=== PATIENT | male | born 1950 | race Caucasian/White ===

== ENCOUNTER 2017-09-22 21:17 | Emergency (ER) | payer MEDICARE ==
[2017-09-22] MEDS ORDERED: IBUPROFEN 400 MG TABLET PO ONE (21:32)
[2017-09-22] MEDS ORDERED: ACETAMINOPHEN 500 MG TABLET PO ONE (21:32)
--- NOTE | 2017-09-22 21:36 | Emergency Department Record ---
History of Present Illness - General Chief complaint: Flu Like Symptoms Stated complaint: COUGH,SORE CHEST,SINUS DRAINAGE,CONFUSION Time Seen by Provider: 09/22/17 21:32 Source: Patient Mode of Arrival: Ambulatory Limitations: No limitations - History of Present Illness Initial comments: 66 yo male presents to ED for evaluation of fever, cough, and congestion symptoms for the past 2-3 days. Patient reports body aches and chills as well. Patient denies any recent ill contacts, denies nausea, vomiting, or abdominal pain/urinary symptoms. Patient does report a history of CAD s/p stent placement and HTN. MD Complaint: Generalized weakness Onset/Timin -: Days(s) Location: Generalized Severity: Moderate Consistency: Constant Improves with: None Worsens with: None Associated Symptoms: Other - [place] Coma Scale Eye Response: (4) Open spontaneously Motor Response: (6) Obeys commands Verbal Response: (5) Oriented [place] Total: 15 - Related Data Home Medications Medication Instructions Recorded Confirmed Last Taken Aspirin 81 mg PO DAILY 09/22/17 09/22/17 Unknown L.acidoph,Paracasei, B.lactis 1 each PO DAILY 09/22/17 09/22/17 Unknown [Probiotic] Turmeric Root Extract [Turmeric] 500 mg PO DAILY 09/22/17 09/22/17 Unknown Previous Rx's Medication Instructions Recorded Doxycycline Hyclate [Doxycycline] 100 mg PO BID #18 cap 09/22/17 Allergies Allergy/AdvReac Type Severity Reaction Status Date / Time venom-honey bee Allergy Intermediate HIVES Verified 09/22/17 21:28 adhesive AdvReac Mild RASH Verified 09/22/17 21:28 isosorbide AdvReac Mild HEADACHE Verified 09/22/17 21:28 Travel Screening - Travel/Exposure Within Last 30 Days Have you traveled within the last 30 days?: No - Travel/Exposure Within Last Year Have you traveled outside the [place] in the last year?: No - Additonal Travel Details Have you been exposed to anyone with a communicable illness?: No - Travel Symptoms Symptom Screening: None Review of Systems Constitutional: Reports: Chills, Fever, Malaise, Weakness. Denies: Night sweats Eyes: Denies: Eye discharge, Eye pain ENT: Reports: Congestion. Denies: Ear pain Respiratory: Reports: Cough. Denies: Dyspnea Cardiovascular: Denies: Chest pain, Dyspnea on exertion, Edema Endocrine: Reports: Fatigue. Denies: Heat or cold intolerance Gastrointestinal: Denies: Abdominal pain, Nausea, Vomiting Genitourinary: Denies: Incontinence, Retention Musculoskeletal: Denies: Arthralgia, Back pain, Gout, Joint swelling Skin: Denies: Bruising, Change in color Neurological: Reports: Headache. Denies: Abnormal gait, Confusion, Seizure Psychiatric: Denies: Anxiety Hematological/Lymphatic: Denies: Anemia, Blood Clots Past Medical History - SOCIAL HISTORY Smoking Status: Never smoker Alcohol Use: None Drug Use: None - RESPIRATORY Hx Respiratory Disorders: Yes Hx Bronchitis: Yes (hx of) Hx Sleep Apnea: Yes (hx of before weight loss) Hx of CPAP: Yes - CARDIOVASCULAR Hx Cardio Disorders: Yes Hx Cardiac Cath: Yes Hx Edema: Yes Hx Coronary Stent: Yes (2003 & 2004) - NEURO Hx Neuro Disorders: No - GI Hx GI Disorders: Yes Hx Reflux: Yes - Hx Genitourinary Disorders: Yes Hx Prostate Problems: Yes (BPH) - ENDOCRINE Hx Endocrine Disorders: No - MUSCULOSKELETAL Hx Musculoskeletal Disorders: No Comment:: knee pain - PSYCH Hx Psych Problems: Yes Hx Anxiety: Yes Comment:: ?bipolar-seeing psychiatrist - HEMATOLOGY/ONCOLOGY Hx Hematology/Oncology Disorders: No Family Medical History Any Significant Family History?: No Hx Cancer: Brother/Sister *Cancer Comment: pancreatic, liver Hx Diabetes: Mother Hx Heart Disease: Father, Mother *Heart Comment: CHF, SD Hx HTN: Mother Physical Exam - General General Appearance: Alert, Oriented x3, Cooperative, Mild distress Limitations: No limitations - Head Head exam: Atraumatic, Normocephalic, Normal inspection Head exam detail: negative: Abrasion, Contusion, Berrios's sign, General tenderness, Hematoma, Laceration - Eye Eye exam: Normal appearance. negative: Conjunctival injection, Periorbital swelling, Periorbital tenderness, Scleral icterus - ENT Ear exam: negative: Auricular hematoma, Auricular trauma Nasal Exam: negative: Active bleeding, Discharge, Dried blood, Foreign body Mouth exam: negative: Drooling, Laceration, Muffled voice, Tongue elevation - Neck Neck exam: Normal inspection. negative: Meningismus, Tenderness - Respiratory Respiratory exam: Normal lung sounds bilaterally. negative: Rales, Respiratory distress, Rhonchi, Stridor - Cardiovascular Cardiovascular Exam: Normal rhythm, Normal heart sounds, Tachycardia - GI/Abdominal GI/Abdominal exam: Soft. negative: Rebound, Rigid, Tenderness - Rectal Rectal exam: Deferred - exam: Deferred - Extremities Extremities exam: Normal inspection. negative: Pedal edema, Tenderness - Back Back exam: Denies: CVA tenderness (R), CVA tenderness (L) - Neurological Neurological exam: Alert, Normal gait, Oriented X3 - Psychiatric Psychiatric exam: Normal affect, Normal mood - Skin Skin exam: Normal color. negative: Abrasion Type of lesion: negative: abrasion Course Vital Signs 09/22/17 21:20 Temperature 102.6 F H Pulse Rate 113 H Respiratory 20 Rate Blood Pressure 137/82 Pulse Ox 95 - Reevaluation(s) Reevaluation #1: 09/22/17 22:15 Influenza: Negative CXR: No acute process Patient reassessed and updated on all results, will initiate treatment with Doxycycline for probable CAP. Patient agrees with the plan of care as discussed. Disposition Disposition: Discharge Clinical Impression: Fever Qualifiers: Fever type: unspecified Qualified Code(s): R50.9 - Fever, unspecified URI (upper respiratory infection) Qualifiers: URI type: unspecified URI Qualified Code(s): J06.9 - Acute upper respiratory infection, unspecified Disposition: Home, Self-Care Condition: (2) Stable Instructions: Upper Respiratory Infection (ED) Additional Instructions: Return to ED if your symptoms worsen or if you have any concerns. Doxycyline as directed. Follow-up with your family doctor in 3-5 days as directed. Prescriptions: Doxycycline Hyclate [Doxycycline] 100 mg PO BID #18 cap Forms: Patient Portal Access Time of Disposition: 22:17 Quality - Quality Measures Quality Measures: N/A - Blood Pressure Screening Does Patient Have Any of the Following: No Blood Pressure Classification: Pre-Hypertensive BP Reading Systolic Measurement: 137 Diastolic Measurement: 82 Screening for High Blood Pressure: < Pre-Hypertensive BP, F/U Documented > [ [id number]] Pre-Hypertensive Follow-up Interventions: Referral to alternative/primary care provider.
[2017-09-22 22:00] LABS: INFLUENZA A NEGATIVE (NEGATIVE); INFLUENZA B NEGATIVE (NEGATIVE)
[2017-09-22] MEDS ORDERED: DOXYCYCLINE HYCLATE 100 MG CAPSULE PO ONE (22:17)
--- NOTE | 2017-09-23 19:44 | RADIOLOGY REPORT ---
EXAM: CHEST 2 VIEWS HISTORY: FLU-LIKE SYMPTOMS SINCE THURSDAY. COUGH, SORE THROAT, AND SINUS DRAINAGE. FEVER. TECHNIQUE: PA and lateral upright views of the chest were obtained. COMPARISON: Previous abdominal CT scan dated 05/28/2016. There are no prior chest studies for comparison. FINDINGS: The heart is normal in size. A small hiatal hernia is present. The mediastinum and pulmonary vasculature are otherwise normal. There are no acute infiltrates or effusions. There is no pneumothorax. The bones appear intact. IMPRESSION: 1. NO ACUTE CHEST PATHOLOGY. 2. SMALL HIATAL HERNIA. JOB NUMBER: [id number] [facility]
== END 2017-09-22 22:56 | disposition home or self-care (01) ==
LOC: ER 21:17
DX: J06.9 Acute upper respiratory infection, unspecified (principal); R53.1 Weakness; R05 Cough; R50.81 Fever presenting with conditions classified elsewhere; I10 Essential (primary) hypertension
CPT/HCPCS: 71046; 87400; 99283